=== PATIENT | female | born 1965 | race Caucasian/White ===

== ENCOUNTER 2020-05-23 12:33 | Observation (INO) | payer BC ==
[2020-05-20 15:09] LABS: BASOPHILS # (AUTO) 0.1 (0.0-0.1); BASOPHILS % 0.4 % (0.0-1.0); HEMOGLOBIN 13.7 g/dL (12.0-16.0); LYMPHOCYTES # (AUTO) 1.8 (1.0-3.2); LYMPHOCYTES % 15.3 % (18.0-39.1); MEAN CORPUSCULAR HEMOGLOBIN 29.7 pg (28-32); MEAN CORPUSCULAR HGB CONC 33.4 g/dL (31-35); MEAN CORPUSCULAR VOLUME 88.9 fL (81-99); MONOCYTES # (AUTO) 0.5 (0.2-0.8); MONOCYTES % 3.9 % (4.4-11.3); NEUTROPHILS # (AUTO) 9.1 (2.1-6.9); NEUTROPHILS % 77.5 % (38.7-80.0); PLATELET COUNT 316 x10e3/uL (140-360); RED BLOOD COUNT 4.61 x10e6/uL (3.6-5.1); RED CELL DISTRIBUTION WIDTH 13.4 % (11.7-14.4)
[2020-05-20 15:20] LABS: INR 0.83; PARTIAL THROMBOPLASTIN TIME 17.3 seconds (23.8-35.5); PROTHROMBIN TIME 11.9 seconds (11.9-14.5)
[2020-05-20 15:25] LABS: ANION GAP 18.9 mmol/L (8-16); BLOOD UREA NITROGEN 14 mg/dL (7-26); BUN/CREATININE RATIO 21 (6-25); CALCIUM 9.3 mg/dL (8.4-10.2); CARBON DIOXIDE 23 mmol/L (22-29); CHLORIDE 100 mmol/L (98-107); CREATININE, SERUM 0.67 mg/dL (0.57-1.11); EST GLOMERULAR FILTRATION RATE > 60 ML/MIN (60-); GLUCOSE 206 mg/dL (74-118); POTASSIUM 3.9 mmol/L (3.5-5.1); SODIUM 138 mmol/L (136-145)
[~2020-05-23 12:33] MED LIST: AMBIEN10 MG PO; ATORVASTATIN CA20 MG PO; CYCLOBENZAPRINE5 MG PO; EFFEXOR XR 3737.5 MG PO; FENTANYL CITRATE/PF 100MCG/2 ML INJ ONE; FUROSEMIDE40 MG PO; HYDROCHLOROTHIA25 MG PO; HYDROCODONE PO; INDERAL LA120 MG PO; LIDOCAINE 1% W/EPINEPHRINE 20 ML VIAL ONE; METFORMIN HCL500 MG PO; MIDAZOLAM HCL 2 MG/2 ML VIAL ONE; THROMBIN FOR SOLN 5,000 UNIT VIAL ONE; TRULICITY0.75 MG/0. SC; VANCOMYCIN HCL 1 GM VIAL ONE; VITAMIN E400 UNI2 PO; ZEGERID 20 MG1 EACH PO
[2020-05-23] MEDS ORDERED: ONDANSETRON HCL INJ 2MG/ML 2ML 2 MG/ML VIAL ONE (13:15)
[2020-05-23] MEDS ORDERED: DEXAMETHASONE SOD PHOS INJ 4 MG/ML VIAL ONE (13:15)
[2020-05-23] MEDS ORDERED: LIDOCAINE HCL 2% LOCAL INJ 5 ML SDV VIAL INJ ONE (13:15)
[2020-05-23] MEDS ORDERED: PROPOFOL IV EMULSION 10 MG/ML 20 ML VIAL ONE (13:15)
[2020-05-23] MEDS ORDERED: ROCURONIUM BROMIDE 10 MG/ML 5ML VIAL IV ONE (13:15)
[2020-05-23] MEDS ORDERED: LIDOCAINE HCL 2% JELLY 5 ML TUBE ONE (13:15)
[2020-05-23] MEDS ORDERED: SEVOFLURANE INHAL SOLN 250 ML PEN BTL ONE (13:15)
[2020-05-23] MEDS ORDERED: GLYCOPYRROLATE INJ 0.2 MG/ML VIAL ONE (13:15)
[2020-05-23] MEDS ORDERED: NEOSTIGMINE 1 MG/ML 10ML VIAL ONE (13:15)
[2020-05-23] MEDS ORDERED: CEFAZOLIN SOD 1 GM/NS 50ML 100 ML IV ONE (13:32)
[2020-05-23] MEDS ORDERED: HYDROCODON-ACE1 EA12 PO (14:36)
[2020-05-23] MEDS ORDERED: HYDROMORPHONE 2MG/ML 2 MG/ML ML IV PRN ×2 (14:45)
[2020-05-23] MEDS ORDERED: DEXTROSE 50% SYRINGE 50 ML IV PRN ×2 (14:45→23:00)
[2020-05-23] MEDS ORDERED: CEPACOL SORE THROAT LOZENGES PO PRN (14:45)
[2020-05-23] MEDS ORDERED: MORPHINE SULFATE 5 MG/ML VIAL IM PRN (14:45)
[2020-05-23] MEDS ORDERED: ONDANSETRON HCL INJ 2MG/ML 2ML 2 MG/ML VIAL IV PRN (14:45)
[2020-05-23] MEDS ORDERED: MAGNESIUM/ALUMINUM/SIMETHICONE 30 ML UDC PO PRN (14:45)
[2020-05-23] MEDS ORDERED: PROMETHAZINE HCL (IM) 25 MG/ML VIAL IM PRN (14:45)
[2020-05-23] MEDS ORDERED: ACETAMINOPHEN 325 MG TAB PO PRN (14:45)
[2020-05-23] MEDS ORDERED: FENTANYL CITRATE/PF 100MCG/2 ML INJ ONE (16:05)
[2020-05-23] MEDS ORDERED: FAMOTIDINE 20 MG/2 ML VIAL IV ONE (16:07)
[2020-05-23 17:00] VITALS: BP 166/91
[2020-05-23] MEDS: METFORMIN HCL 500 MG TAB PO SCH (18:48)
[2020-05-23] MEDS: LACTATED RINGER'S 1,000 ML IV SCH ×2 (18:48→23:05)
[2020-05-23 20:00] VITALS: BP 160/78
[2020-05-23] MEDS: OXYCODONE/ACETAMINOPHEN 5-325 1 EACH TABLET PO PRN (20:25)
[2020-05-23] MEDS: CARISOPRODOL 350 MG TAB PO PRN (20:25)
[2020-05-23] MEDS ORDERED: ZOLPIDEM TARTRATE 5 MG TAB PO PRN (21:00)
[2020-05-23] MEDS ORDERED: PROPRANOLOL HCL 60 MG ER CAP PO SCH (21:00)
[2020-05-23] MEDS ORDERED: PROPRANOLOL HCL 60 MG PO SCH (21:00)
[2020-05-23 21:30] VITALS: BP 160/78
[2020-05-23] MEDS: CEFAZOLIN SOD 1 GM/NS 50ML 50 ML IV SCH (22:42)
[2020-05-23] MEDS: INSULIN REGULAR, HUMAN 100 UNIT/1 ML 3ML VIAL SQ SCH (23:38)
[2020-05-24] VITALS: BP 134/66
[2020-05-24] MEDS: OXYCODONE/ACETAMINOPHEN 5-325 1 EACH TABLET PO PRN ×2 (00:30→05:58)
[2020-05-24] MEDS: CARISOPRODOL 350 MG TAB PO PRN ×2 (00:30→05:58)
[2020-05-24 04:00] VITALS: BP 127/76
[2020-05-24] MEDS: CEFAZOLIN SOD 1 GM/NS 50ML 50 ML IV SCH (05:55)
[2020-05-24 08:01] VITALS: BP 127/76
[2020-05-24 08:18] VITALS: BP 134/65
[2020-05-24] MEDS: METFORMIN HCL 500 MG TAB PO SCH (08:49)
[2020-05-24] MEDS: INSULIN REGULAR, HUMAN 100 UNIT/1 ML 3ML VIAL SQ SCH (08:50)
== END 2020-05-24 10:47 | disposition home or self-care (01) ==
LOC: OR 12:33 → PACU V 16:18 → MED/SURG3 16:29
PROVIDERS: ADMIT Neurological Surgery; ATTEND Neurological Surgery
DX: M51.16 Intervertebral disc disorders with radiculopathy, lumbar region (principal); I10 Essential (primary) hypertension; E78.5 Hyperlipidemia, unspecified; E03.9 Hypothyroidism, unspecified; K21.9 Gastro-esophageal reflux disease without esophagitis
CPT/HCPCS: 36415 ×3; 63047; 71046; 72020; 80048; 82948 ×2; 85025; 85610; 85730; 86850; 86900; 88304; 93005; 96372; G0378 ×2; J0690 ×2; J1100; J1170; J2001 ×2; J2250; J2405; J2704; J2710; J3010; J3370; J7121; U0002

== ENCOUNTER 2020-07-17 07:48 | Outpatient (RCR) | payer BC ==
[~2020-07-17 07:48] MED LIST changes: -FENTANYL CITRATE/PF 100MCG/2 ML INJ ONE; +HYDROCODON-ACE1 EA12 PO; -LIDOCAINE 1% W/EPINEPHRINE 20 ML VIAL ONE; +LIDOCAINE/PRILOCAINE 2.5-2.5% KIT ONE; -MIDAZOLAM HCL 2 MG/2 ML VIAL ONE; -THROMBIN FOR SOLN 5,000 UNIT VIAL ONE; -VANCOMYCIN HCL 1 GM VIAL ONE
== END 2020-07-18 ==
LOC: PT 07:48
PROVIDERS: ATTEND Neurological Surgery
DX: M51.16 Intervertebral disc disorders with radiculopathy, lumbar region (principal); M62.81 Muscle weakness (generalized); M53.86 Other specified dorsopathies, lumbar region; R26.2 Difficulty in walking, not elsewhere classified

== ENCOUNTER 2020-08-14 07:55 | Outpatient (RCR) | payer BC ==
[~2020-08-14 07:55] MED LIST changes: -LIDOCAINE/PRILOCAINE 2.5-2.5% KIT ONE
== END 2020-08-18 ==
LOC: PT 07:55
PROVIDERS: ATTEND Neurological Surgery
DX: M51.16 Intervertebral disc disorders with radiculopathy, lumbar region (principal)

== ENCOUNTER 2020-08-21 07:54 | Outpatient (RCR) | payer BC | END 2020-09-17 | LOC: PT 07:54 | PROVIDERS: ATTEND Neurological Surgery | DX: M51.16 Intervertebral disc disorders with radiculopathy, lumbar region (principal); M62.81 Muscle weakness (generalized); R26.2 Difficulty in walking, not elsewhere classified; M53.86 Other specified dorsopathies, lumbar region | CPT/HCPCS: 97139 ==

== ENCOUNTER → 2021-10-26 | Outpatient (CLI) | payer BC | LOC: US 07:46 | PROVIDERS: ATTEND Internal Medicine | DX: E05.90 Thyrotoxicosis, unspecified without thyrotoxic crisis or storm (principal) | CPT/HCPCS: 76536; 78014; A9516 ==

== ENCOUNTER 2022-05-19 17:09 | Inpatient (IN) | payer BC ==
[~2022-05-19] VITALS: Ht 172.7 cm; Wt 77.1 kg
[2022-05-19 17:28] LABS: BASOPHILS # (AUTO) 0.1 (0.0-0.1); BASOPHILS % 0.5 % (0.0-1.0); EOSINOPHILS # (AUTO) 0.3 (0.0-0.4); EOSINOPHILS % 1.8 % (0.0-6.0); HEMATOCRIT 38.6 % (34.2-44.1); HEMOGLOBIN 13.5 g/dL (12.0-16.0); LYMPHOCYTES # (AUTO) 4.1 (1.0-3.2); LYMPHOCYTES % 25.7 % (18.0-39.1); MEAN CORPUSCULAR HEMOGLOBIN 29.5 pg (28-32); MEAN CORPUSCULAR VOLUME 84.3 fL (81-99); MONOCYTES % 6.2 % (4.4-11.3); NEUTROPHILS # (AUTO) 10.1 (2.1-6.9); NEUTROPHILS % 64.5 % (38.7-80.0); PLATELET COUNT 405 x10e3/uL (140-360); RED BLOOD COUNT 4.58 x10e6/uL (3.6-5.1); RED CELL DISTRIBUTION WIDTH 12.6 % (11.7-14.4)
[2022-05-19 17:47] LABS: ALANINE AMINOTRANSFERASE 13 IU/L (0-55); ALBUMIN 3.8 g/dL (3.5-5.0); ALBUMIN/GLOBULIN RATIO 1.4 (0.8-2.0); ALKALINE PHOSPHATASE 92 IU/L (40-150); ANION GAP 15.4 mmol/L (8-16); BLOOD UREA NITROGEN 24 mg/dL (7-26); BUN/CREATININE RATIO 13 (6-25); CALCIUM 9.7 mg/dL (8.4-10.2); CARBON DIOXIDE 28 mmol/L (22-29); CHLORIDE 91 mmol/L (98-107); CREATINE KINASE 23 IU/L (29-168); CREATININE, SERUM 1.78 mg/dL (0.57-1.11); GLUCOSE 106 mg/dL (74-118); POTASSIUM 3.4 mmol/L (3.5-5.1); SODIUM 131 mmol/L (136-145)
[2022-05-19 18:03] LABS: FREE T4 (FREE THYROXINE) 0.89 ng/dL (0.8-1.8); THYROID STIMULATING HORMONE 6.954 uIU/mL (0.350-4.940)
[2022-05-19 18:45] LABS: CLARITY,URINE CLEAR (CLEAR); COLOR,URINE YELLOW (YELLOW)
[2022-05-19 18:46] LABS: KETONES,URINE 1+ (NEGATIVE); LEUKOCYTE ESTERASE ,URINE TRACE (NEGATIVE); NITRITE,URINE NEGATIVE (NEGATIVE); PROTEIN,URINE DIPSTICK NEGATIVE (NEGATIVE); URINE UROBILINOGEN 0.2 mg/dL (0.2 - 1)
[2022-05-19 18:53] LABS: AMPHETAMINES SCREEN,URINE NEGATIVE (NEGATIVE); BENZODIAZEPINES SCREEN,URINE POSITIVE (NEGATIVE); PHENCYCLIDINE SCREEN,URINE NEGATIVE (NEGATIVE)
[2022-05-19 18:56] LABS: BACTERIA,URINE FEW /HPF; CALCIUM OXALATE CRYSTALS,UR MANY (FEW)
[2022-05-19] MEDS ORDERED: SODIUM CHLORIDE 0.9% 1000ML 1,000 ML IV STA (19:14)
[2022-05-19] MEDS: SODIUM CHLORIDE 0.9% 1000ML 1,000 ML IV SCH (21:30)
[2022-05-20] MEDS: SODIUM CHLORIDE 0.9% 1000ML 1,000 ML IV SCH (05:05)
[2022-05-20 06:42] LABS: BASOPHILS # (AUTO) 0.1 (0.0-0.1); BASOPHILS % 0.6 % (0.0-1.0); EOSINOPHILS # (AUTO) 0.3 (0.0-0.4); EOSINOPHILS % 2.7 % (0.0-6.0); HEMOGLOBIN 13.6 g/dL (12.0-16.0); LYMPHOCYTES # (AUTO) 3.4 (1.0-3.2); LYMPHOCYTES % 33.5 % (18.0-39.1); MEAN CORPUSCULAR HEMOGLOBIN 29.1 pg (28-32); MEAN CORPUSCULAR VOLUME 85.7 fL (81-99); MONOCYTES # (AUTO) 0.6 (0.2-0.8); MONOCYTES % 5.6 % (4.4-11.3); NEUTROPHILS # (AUTO) 5.7 (2.1-6.9); NEUTROPHILS % 56.1 % (38.7-80.0); PLATELET COUNT 329 x10e3/uL (140-360); RED BLOOD COUNT 4.67 x10e6/uL (3.6-5.1); RED CELL DISTRIBUTION WIDTH 12.8 % (11.7-14.4)
[2022-05-20 07:12] LABS: ALBUMIN 3.4 g/dL (3.5-5.0); ALBUMIN/GLOBULIN RATIO 1.3 (0.8-2.0); ANION GAP 11.9 mmol/L (8-16); CALCIUM 8.5 mg/dL (8.4-10.2); CREATININE, SERUM 0.98 mg/dL (0.57-1.11)
[2022-05-20 07:26] LABS: POTASSIUM 2.9 mmol/L (3.5-5.1)
[2022-05-20] MEDS ORDERED: POTASSIUM CHLORIDE 20 MEQ TAB CR PO STA (07:38)
[2022-05-20] MEDS ORDERED: POTASSIUM CHLORIDE 40 MEQ in SODIUM CHLORIDE 0.45% 1,000 ML IV SCH (07:45)
[2022-05-20 07:48] LABS: CREATINE KINASE 15 IU/L (29-168)
[2022-05-20 08:09] LABS: MAGNESIUM 1.7 MG/DL (1.3-2.1); PHOSPHORUS 1.9 MG/DL (2.3-4.7)
[2022-05-20] MEDS: POTASSIUM CHL 40 MEQ in SODIUM CHLORIDE 0.45% 1,000 ML IV SCH ×2 (08:32→18:27)
[2022-05-20] MEDS ORDERED: TOPIRAMATE25 MG PO (08:40)
[2022-05-20] MEDS ORDERED: ZYRTEC10 M3 PO (08:40)
[2022-05-20] MEDS ORDERED: LASIX40 MG PO (08:40)
[2022-05-20] MEDS ORDERED: ZEGERID OTC 201 EACH PO (08:40)
[2022-05-20] MEDS ORDERED: HYDROCHLOROTHIA25 MG PO (08:40)
[2022-05-20] MEDS ORDERED: FLONASE ALLERG9.9 ML INH (08:40)
[2022-05-20] MEDS ORDERED: GLIPIZIDE5 MG PO (08:40)
[2022-05-20] MEDS ORDERED: KLOR-CON M2020 MEQ PO (08:40)
[2022-05-20] MEDS ORDERED: PROPRANOLOL HCL40 MG PO (08:40)
[2022-05-20] MEDS ORDERED: METHIMAZOLE10 MG PO (08:40)
[2022-05-20] MEDS ORDERED: MAGNESIUM SULFATE 2GM/50ML IV ONE (09:30)
[2022-05-20] MEDS ORDERED: POTASSIUM PHOSPHATE 20 MM in SODIUM CHLORIDE 0.9% 250ML 250 ML IV ONE (09:30)
[2022-05-20] MEDS ORDERED: MAGNESIUM SULFATE 2GM/50ML 50 ML IV ONE (09:30)
[2022-05-20] MEDS ORDERED: DEXTROSE 50% SYRINGE 50 ML IV PRN (10:15)
[2022-05-20] MEDS ORDERED: PEG (High)/E-LYTE SOLN 4,000 ML BTL PO ONE ×2 (11:30→18:00)
[2022-05-20] MEDS: INSULIN LISPRO 100 UNIT/1 ML 3ML VIAL SQ SCH ×3 (11:30→21:00)
[2022-05-20] MEDS ORDERED: PROPRANOLOL HCL 40 MG TAB PO SCH (17:00)
[2022-05-20 17:39] VITALS: BP 140/69
[2022-05-20 17:40] VITALS: BP 140/69
[2022-05-20] MEDS ORDERED: TRULICITY0.75 MG/0. SQ (18:58)
[2022-05-20 20:00] VITALS: BP 104/87
[2022-05-20 20:35] VITALS: BP 140/69
[2022-05-20] MEDS: PROPRANOLOL HCL 40 MG TAB PO SCH (21:00)
[2022-05-20] MEDS: TOPIRAMATE 25 MG TAB PO SCH (21:27)
[2022-05-20] MEDS: ONDANSETRON HCL INJ 2MG/ML 2ML 2 MG/ML VIAL IV PRN (21:42)
[2022-05-20] MEDS: Morphine 4mg INJECTION 4 MG/ML INJ IV PRN (21:43)
[2022-05-20] MEDS: METOCLOPRAMIDE HCL 10 MG/2ML VIAL IV SCH (23:27)
[2022-05-21] VITALS (8 sets, daily range): BP systolic 114–134; BP diastolic 73–83
[2022-05-21] MEDS ORDERED: DOCUSATE SODIUM 100 MG CAP PO ONE ×2 (00:15→00:45)
[2022-05-21] MEDS: POTASSIUM CHL 40 MEQ in SODIUM CHLORIDE 0.45% 1,000 ML IV SCH ×2 (04:28→17:01)
[2022-05-21 05:52] LABS: BASOPHILS # (AUTO) 0.1 (0.0-0.1); BASOPHILS % 0.6 % (0.0-1.0); EOSINOPHILS # (AUTO) 0.2 (0.0-0.4); EOSINOPHILS % 2.5 % (0.0-6.0); HEMOGLOBIN 12.6 g/dL (12.0-16.0); LYMPHOCYTES # (AUTO) 2.6 (1.0-3.2); LYMPHOCYTES % 33.7 % (18.0-39.1); MEAN CORPUSCULAR HGB CONC 33.2 g/dL (31-35); MEAN CORPUSCULAR VOLUME 87.4 fL (81-99); MONOCYTES # (AUTO) 0.5 (0.2-0.8); NEUTROPHILS # (AUTO) 4.3 (2.1-6.9); PLATELET COUNT 302 x10e3/uL (140-360); RED BLOOD COUNT 4.35 x10e6/uL (3.6-5.1); RED CELL DISTRIBUTION WIDTH 12.7 % (11.7-14.4)
[2022-05-21] MEDS ORDERED: PEG (High)/E-LYTE SOLN 4,000 ML BTL PO ONE (06:00)
[2022-05-21 06:10] LABS: CREATINE KINASE 19 IU/L (29-168)
[2022-05-21] MEDS: METOCLOPRAMIDE HCL 10 MG/2ML VIAL IV SCH ×3 (06:26→18:00)
[2022-05-21 06:27] LABS: ANION GAP 14.7 mmol/L (8-16); CALCIUM 8.7 mg/dL (8.4-10.2); CREATININE, SERUM 0.67 mg/dL (0.57-1.11); POTASSIUM 3.7 mmol/L (3.5-5.1)
[2022-05-21 06:48] LABS: MAGNESIUM 1.9 MG/DL (1.3-2.1); PHOSPHORUS 3.9 MG/DL (2.3-4.7)
[2022-05-21 07:09] LABS: THYROID STIMULATING HORMONE 7.524 uIU/mL (0.350-4.940)
[2022-05-21] MEDS: INSULIN LISPRO 100 UNIT/1 ML 3ML VIAL SQ SCH ×4 (07:30→22:24)
[2022-05-21] MEDS: METHIMAZOLE 5 MG TAB PO SCH (09:00)
[2022-05-21] MEDS: PROPRANOLOL HCL 40 MG TAB PO SCH ×2 (09:00→22:04)
[2022-05-21] MEDS: LORATADINE 10 MG TAB PO SCH (09:00)
[2022-05-21] MEDS ORDERED: METHIMAZOLE PO SCH (09:00)
[2022-05-21] MEDS ORDERED: KETOROLAC TROMETHAMINE 30 MG/ML VIAL ONE (12:26)
[2022-05-21] MEDS ORDERED: ONDANSETRON HCL INJ 2MG/ML 2ML 2 MG/ML VIAL ONE (12:26)
[2022-05-21] MEDS ORDERED: METOCLOPRAMIDE HCL 10 MG/2ML VIAL ONE (12:26)
[2022-05-21] MEDS ORDERED: PROPOFOL IV EMULSION 10 MG/ML 20 ML VIAL ONE (12:26)
[2022-05-21] MEDS ORDERED: POVIDONE IODINE 0.05% 0.05 % ML PO ONE (12:26)
[2022-05-21] MEDS: FLUCONAZOLE 200 MG/100 ML 100 ML IV SCH (18:25)
[2022-05-21] MEDS: TOPIRAMATE 25 MG TAB PO SCH (22:05)
[2022-05-22] VITALS (10 sets, daily range): BP systolic 116–139; BP diastolic 66–94
[2022-05-22 05:01] LABS: BASOPHILS % 0.1 % (0.0-1.0); HEMOGLOBIN 12.9 g/dL (12.0-16.0); LYMPHOCYTES # (AUTO) 0.7 (1.0-3.2); LYMPHOCYTES % 10.2 % (18.0-39.1); MEAN CORPUSCULAR HEMOGLOBIN 28.6 pg (28-32); MEAN CORPUSCULAR HGB CONC 33.1 g/dL (31-35); MEAN CORPUSCULAR VOLUME 86.5 fL (81-99); MONOCYTES # (AUTO) 0.1 (0.2-0.8); NEUTROPHILS # (AUTO) 5.9 (2.1-6.9); NEUTROPHILS % 87.7 % (38.7-80.0); PLATELET COUNT 266 x10e3/uL (140-360); RED BLOOD COUNT 4.51 x10e6/uL (3.6-5.1); RED CELL DISTRIBUTION WIDTH 12.9 % (11.7-14.4)
[2022-05-22] MEDS: METOCLOPRAMIDE HCL 10 MG/2ML VIAL IV SCH ×5 (05:12→23:50)
[2022-05-22 05:26] LABS: ANION GAP 12.9 mmol/L (8-16); CALCIUM 8.7 mg/dL (8.4-10.2); CREATININE, SERUM 0.72 mg/dL (0.57-1.11); POTASSIUM 3.9 mmol/L (3.5-5.1)
[2022-05-22 05:28] LABS: MAGNESIUM 1.9 MG/DL (1.3-2.1); PHOSPHORUS 3.3 MG/DL (2.3-4.7)
[2022-05-22] MEDS: POTASSIUM CHL 40 MEQ in SODIUM CHLORIDE 0.45% 1,000 ML IV SCH ×3 (06:44→21:17)
[2022-05-22] MEDS: INSULIN LISPRO 100 UNIT/1 ML 3ML VIAL SQ SCH ×5 (07:30→21:00)
[2022-05-22] MEDS: LORATADINE 10 MG TAB PO SCH (08:15)
[2022-05-22] MEDS: METHIMAZOLE 5 MG TAB PO SCH (08:17)
[2022-05-22] MEDS: PROPRANOLOL HCL 40 MG TAB PO SCH ×2 (08:17→21:19)
[2022-05-22] MEDS: Morphine 4mg INJECTION 4 MG/ML INJ IV PRN ×2 (12:16→22:02)
[2022-05-22] MEDS: ONDANSETRON HCL INJ 2MG/ML 2ML 2 MG/ML VIAL IV PRN ×2 (12:16→22:01)
[2022-05-22] MEDS: FLUCONAZOLE 200 MG/100 ML 100 ML IV SCH (18:38)
[2022-05-22] MEDS: TOPIRAMATE 25 MG TAB PO SCH (21:17)
[2022-05-23] VITALS (8 sets, daily range): BP systolic 99–129; BP diastolic 52–84
[2022-05-23] MEDS ORDERED: CYANOCOBALAMIN INJ 1,000 MCG/ML VIAL IM ONE (00:30)
[2022-05-23 05:30] LABS: BASOPHILS % 0.1 % (0.0-1.0); EOSINOPHILS % 0.1 % (0.0-6.0); HEMOGLOBIN 12.3 g/dL (12.0-16.0); LYMPHOCYTES # (AUTO) 1.8 (1.0-3.2); LYMPHOCYTES % 14.6 % (18.0-39.1); MEAN CORPUSCULAR HEMOGLOBIN 29.4 pg (28-32); MEAN CORPUSCULAR HGB CONC 33.2 g/dL (31-35); MEAN CORPUSCULAR VOLUME 88.3 fL (81-99); MONOCYTES # (AUTO) 0.5 (0.2-0.8); MONOCYTES % 3.9 % (4.4-11.3); NEUTROPHILS % 80.5 % (38.7-80.0); PLATELET COUNT 303 x10e3/uL (140-360); RED BLOOD COUNT 4.19 x10e6/uL (3.6-5.1); RED CELL DISTRIBUTION WIDTH 13.5 % (11.7-14.4)
[2022-05-23 05:44] LABS: ANION GAP 11.5 mmol/L (8-16); CREATININE, SERUM 0.81 mg/dL (0.57-1.11); POTASSIUM 4.5 mmol/L (3.5-5.1)
[2022-05-23] MEDS: METOCLOPRAMIDE HCL 10 MG/2ML VIAL IV SCH ×3 (05:44→18:38)
[2022-05-23] MEDS: INSULIN LISPRO 100 UNIT/1 ML 3ML VIAL SQ SCH ×4 (07:30→20:05)
[2022-05-23] MEDS: CYANOCOBALAMIN INJ 1,000 MCG/ML VIAL IM SCH (08:45)
[2022-05-23] MEDS: POTASSIUM CHL 40 MEQ in SODIUM CHLORIDE 0.45% 1,000 ML IV SCH ×2 (08:45→17:51)
[2022-05-23] MEDS: METHIMAZOLE 5 MG TAB PO SCH (08:45)
[2022-05-23] MEDS: PROPRANOLOL HCL 40 MG TAB PO SCH ×2 (08:46→21:46)
[2022-05-23] MEDS: LORATADINE 10 MG TAB PO SCH (08:46)
[2022-05-23] MEDS: FLUCONAZOLE 200 MG/100 ML 100 ML IV SCH (18:38)
[2022-05-23] MEDS: TOPIRAMATE 25 MG TAB PO SCH (21:45)
[2022-05-23] MEDS ORDERED: CHLORDIAZEPOXIDE/CLIDINIUM 1 CAP PO STA (22:04)
[2022-05-24] VITALS (7 sets, daily range): BP systolic 116–142; BP diastolic 74–84
[2022-05-24] MEDS: METOCLOPRAMIDE HCL 10 MG/2ML VIAL IV SCH ×4 (00:12→17:57)
[2022-05-24] MEDS: POTASSIUM CHL 40 MEQ in SODIUM CHLORIDE 0.45% 1,000 ML IV SCH ×3 (01:44→14:15)
[2022-05-24 05:12] LABS: BASOPHILS % 0.5 % (0.0-1.0); EOSINOPHILS # (AUTO) 0.1 (0.0-0.4); EOSINOPHILS % 0.9 % (0.0-6.0); HEMATOCRIT 36.9 % (34.2-44.1); HEMOGLOBIN 12.2 g/dL (12.0-16.0); LYMPHOCYTES % 38.4 % (18.0-39.1); MEAN CORPUSCULAR HEMOGLOBIN 29.4 pg (28-32); MEAN CORPUSCULAR HGB CONC 33.1 g/dL (31-35); MEAN CORPUSCULAR VOLUME 88.9 fL (81-99); MONOCYTES # (AUTO) 0.5 (0.2-0.8); MONOCYTES % 5.8 % (4.4-11.3); NEUTROPHILS # (AUTO) 4.3 (2.1-6.9); NEUTROPHILS % 53.9 % (38.7-80.0); PLATELET COUNT 233 x10e3/uL (140-360); RED BLOOD COUNT 4.15 x10e6/uL (3.6-5.1); RED CELL DISTRIBUTION WIDTH 13.9 % (11.7-14.4)
[2022-05-24 05:28] LABS: ANION GAP 12.8 mmol/L (8-16); CALCIUM 8.8 mg/dL (8.4-10.2); CREATININE, SERUM 0.69 mg/dL (0.57-1.11); POTASSIUM 3.8 mmol/L (3.5-5.1)
[2022-05-24 05:51] LABS: MAGNESIUM 1.9 MG/DL (1.3-2.1); PHOSPHORUS 3.8 MG/DL (2.3-4.7)
[2022-05-24] MEDS: INSULIN LISPRO 100 UNIT/1 ML 3ML VIAL SQ SCH ×4 (07:30→21:00)
[2022-05-24] MEDS ORDERED: MAGNESIUM HYDROXIDE 30 ML UDC PO ONE (08:00)
[2022-05-24] MEDS: CYANOCOBALAMIN INJ 1,000 MCG/ML VIAL IM SCH ×2 (09:00→21:46)
[2022-05-24] MEDS: CHLORDIAZEPOXIDE/CLIDINIUM 1 CAP PO SCH ×4 (09:29→21:48)
[2022-05-24] MEDS: METHIMAZOLE 5 MG TAB PO SCH (09:30)
[2022-05-24] MEDS: LORATADINE 10 MG TAB PO SCH (09:30)
[2022-05-24] MEDS ORDERED: SODIUM CHLORIDE 0.9% 250ML 250 ML ONE (09:52)
[2022-05-24] MEDS ORDERED: GADOBENATE DIMEGLUMINE 1 ML IV ONE (10:03)
[2022-05-24] MEDS: PROPRANOLOL HCL 40 MG TAB PO SCH ×2 (14:11→21:47)
[2022-05-24] MEDS ORDERED: ACETAMINOPHEN 325 MG TAB PO PRN (14:45)
[2022-05-24] MEDS: Morphine 4mg INJECTION 4 MG/ML INJ IV PRN ×2 (17:46→22:01)
[2022-05-24] MEDS: ONDANSETRON HCL INJ 2MG/ML 2ML 2 MG/ML VIAL IV PRN ×2 (17:46→22:01)
[2022-05-24] MEDS: FLUCONAZOLE 200 MG/100 ML 100 ML IV SCH (18:30)
[2022-05-24] MEDS: TOPIRAMATE 25 MG TAB PO SCH (21:48)
[2022-05-25] VITALS: BP 121/71
[2022-05-25] MEDS: METOCLOPRAMIDE HCL 10 MG/2ML VIAL IV SCH ×4 (00:16→17:15)
[2022-05-25] MEDS: POTASSIUM CHL 40 MEQ in SODIUM CHLORIDE 0.45% 1,000 ML IV SCH ×2 (00:16→09:19)
[2022-05-25 06:00] VITALS: BP 132/80
[2022-05-25] MEDS: INSULIN LISPRO 100 UNIT/1 ML 3ML VIAL SQ SCH ×4 (07:30→21:00)
[2022-05-25 08:23] VITALS: BP 138/85
[2022-05-25] MEDS: CHLORDIAZEPOXIDE/CLIDINIUM 1 CAP PO SCH ×4 (09:14→21:11)
[2022-05-25] MEDS: METHIMAZOLE 5 MG TAB PO SCH (09:15)
[2022-05-25] MEDS: LORATADINE 10 MG TAB PO SCH (09:15)
[2022-05-25] MEDS: PROPRANOLOL HCL 40 MG TAB PO SCH ×2 (09:15→21:11)
[2022-05-25 12:05] VITALS: BP 102/56
[2022-05-25 16:26] VITALS: BP 119/72
[2022-05-25] MEDS: FLUCONAZOLE 200 MG/100 ML 100 ML IV SCH (17:53)
[2022-05-25 21:03] VITALS: BP 129/55
[2022-05-25] MEDS: TOPIRAMATE 25 MG TAB PO SCH (21:11)
[2022-05-25] MEDS: CYANOCOBALAMIN INJ 1,000 MCG/ML VIAL IM SCH (21:15)
[2022-05-26] VITALS (11 sets, daily range): BP systolic 117–165; BP diastolic 55–97
[2022-05-26] MEDS: CHLORDIAZEPOXIDE/CLIDINIUM 1 CAP PO SCH (07:30)
[2022-05-26] MEDS: INSULIN LISPRO 100 UNIT/1 ML 3ML VIAL SQ SCH ×4 (07:30→21:00)
[2022-05-26] MEDS: METOCLOPRAMIDE HCL 10 MG/2ML VIAL IV SCH ×3 (07:30→17:32)
[2022-05-26] MEDS ORDERED: BUPIVACAINE 0.5%/EPI 30 ML SDV INJ ONE (09:00)
[2022-05-26] MEDS: LORATADINE 10 MG TAB PO SCH (09:00)
[2022-05-26] MEDS: PROPRANOLOL HCL 40 MG TAB PO SCH ×2 (09:00→21:21)
[2022-05-26] MEDS: METHIMAZOLE 5 MG TAB PO SCH (09:00)
[2022-05-26] MEDS ORDERED: ACETAMINOPHEN 1000 MG/100 ML IV PRN (10:30)
[2022-05-26] MEDS ORDERED: ONDANSETRON HCL INJ 2MG/ML 2ML 2 MG/ML VIAL IV PRN (10:30)
[2022-05-26] MEDS ORDERED: HYDROMORPHONE 1MG/1ML INJ IV PRN (10:30)
[2022-05-26] MEDS ORDERED: FENTANYL CITRATE/PF 100MCG/2 ML INJ ONE ×2 (11:10→12:08)
[2022-05-26] MEDS ORDERED: METOCLOPRAMIDE HCL 10 MG/2ML VIAL ONE (11:24)
[2022-05-26] MEDS: SODIUM CHLORIDE 0.9% 1000ML 1,000 ML IV SCH ×2 (11:30→21:22)
[2022-05-26] MEDS ORDERED: ONDANSETRON HCL INJ 2MG/ML 2ML 2 MG/ML VIAL ONE (11:53)
[2022-05-26] MEDS ORDERED: PROPOFOL IV EMULSION 10 MG/ML 20 ML VIAL ONE (11:53)
[2022-05-26] MEDS ORDERED: KETOROLAC TROMETHAMINE 30 MG/ML VIAL ONE (11:53)
[2022-05-26] MEDS ORDERED: NEOSTIGMINE 1 MG/ML 10ML VIAL ONE (11:53)
[2022-05-26] MEDS ORDERED: LIDOCAINE HCL 2% LOCAL INJ 5 ML SDV VIAL INJ ONE (11:53)
[2022-05-26] MEDS ORDERED: ROCURONIUM BROMIDE 10 MG/ML 5ML VIAL IV ONE (11:53)
[2022-05-26] MEDS ORDERED: POVIDONE IODINE 0.05% 0.05 % ML PO ONE (11:53)
[2022-05-26] MEDS ORDERED: SEVOFLURANE INHAL SOLN 250 ML PEN BTL ONE (11:53)
[2022-05-26] MEDS ORDERED: DEXAMETHASONE SOD PHOS INJ 4 MG/ML SDV ONE (11:53)
[2022-05-26] MEDS ORDERED: CEFTRIAXONE 1 GM VIAL ONE (11:53)
[2022-05-26] MEDS ORDERED: GLYCOPYRROLATE INJ 0.2 MG/ML VIAL ONE (11:53)
[2022-05-26] MEDS ORDERED: PHENYLEPHRINE HCL 1% 10 MG/ML VIAL ONE (11:53)
[2022-05-26] MEDS ORDERED: MIDAZOLAM HCL 2 MG/2 ML VIAL ONE (12:08)
[2022-05-26] MEDS: FLUCONAZOLE 200 MG/100 ML 100 ML IV SCH (17:31)
[2022-05-26] MEDS: HYDROCODONE/APAP 7.5MG-325MG 1 EA TAB PO PRN ×2 (17:38→23:25)
[2022-05-26] MEDS: CYANOCOBALAMIN INJ 1,000 MCG/ML VIAL IM SCH (21:20)
[2022-05-26] MEDS: TOPIRAMATE 25 MG TAB PO SCH (21:21)
[2022-05-27] VITALS (7 sets, daily range): BP systolic 118–165; BP diastolic 65–93
[2022-05-27] MEDS: HYDROCODONE/APAP 7.5MG-325MG 1 EA TAB PO PRN ×3 (03:17→14:24)
[2022-05-27 05:02] LABS: BASOPHILS % 0.2 % (0.0-1.0); HEMATOCRIT 33.9 % (34.2-44.1); HEMOGLOBIN 11.3 g/dL (12.0-16.0); LYMPHOCYTES # (AUTO) 1.2 (1.0-3.2); LYMPHOCYTES % 8.9 % (18.0-39.1); MEAN CORPUSCULAR HEMOGLOBIN 29.3 pg (28-32); MEAN CORPUSCULAR HGB CONC 33.3 g/dL (31-35); MEAN CORPUSCULAR VOLUME 87.8 fL (81-99); MONOCYTES # (AUTO) 0.7 (0.2-0.8); MONOCYTES % 5.2 % (4.4-11.3); NEUTROPHILS # (AUTO) 11.3 (2.1-6.9); NEUTROPHILS % 85.1 % (38.7-80.0); PLATELET COUNT 214 x10e3/uL (140-360); RED BLOOD COUNT 3.86 x10e6/uL (3.6-5.1); RED CELL DISTRIBUTION WIDTH 13.3 % (11.7-14.4)
[2022-05-27 05:31] LABS: ALBUMIN 3.2 g/dL (3.5-5.0); ALBUMIN/GLOBULIN RATIO 1.5 (0.8-2.0); ANION GAP 12.4 mmol/L (8-16); CALCIUM 8.5 mg/dL (8.4-10.2); CREATININE, SERUM 0.66 mg/dL (0.57-1.11); POTASSIUM 3.4 mmol/L (3.5-5.1)
[2022-05-27] MEDS: INSULIN LISPRO 100 UNIT/1 ML 3ML VIAL SQ SCH ×2 (07:30→11:23)
[2022-05-27] MEDS: LORATADINE 10 MG TAB PO SCH (07:57)
[2022-05-27] MEDS: METHIMAZOLE 5 MG TAB PO SCH (07:58)
[2022-05-27] MEDS: METOCLOPRAMIDE HCL 10 MG/2ML VIAL IV SCH ×2 (08:00→11:30)
[2022-05-27] MEDS: PROPRANOLOL HCL 40 MG TAB PO SCH (10:23)
[2022-05-27] MEDS ORDERED: ONDANSETRON HCL 4 MG ORAL DISINTEGRATING TAB PO PRN (11:00)
[2022-05-28] MEDS ORDERED: PANTOPRAZOLE SOD 40 MG TABEC PO SCH (07:30)
== END 2022-05-27 15:44 | disposition home or self-care (01) | DRG 418 ==
LOC: ER 17:50 → ERHOLD 19:26 → MED/SURG 05-20 17:32 → OBSVTOIN 05-22 07:47 → INTOOBSV 05-22 07:47
PROVIDERS: ADMIT Internal Medicine; ATTEND Internal Medicine
PROC: 0DD98ZX Extraction of Duodenum, Via Natural or Artificial Opening Endoscopic, Diagnostic (ICD-10-PCS; 2022-05-21)
PROC: 0DD78ZX Extraction of Stomach, Pylorus, Via Natural or Artificial Opening Endoscopic, Diagnostic (ICD-10-PCS; 2022-05-21)
PROC: 0DD68ZX Extraction of Stomach, Via Natural or Artificial Opening Endoscopic, Diagnostic (ICD-10-PCS; 2022-05-21)
PROC: 0DD58ZX Extraction of Esophagus, Via Natural or Artificial Opening Endoscopic, Diagnostic (ICD-10-PCS; 2022-05-21)
PROC: 0FT44ZZ Resection of Gallbladder, Percutaneous Endoscopic Approach (ICD-10-PCS; principal; 2022-05-26 09:09)
DX: K80.12 Calculus of gallbladder with acute and chronic cholecystitis without obstruction (principal); E87.1 Hypo-osmolality and hyponatremia; N17.9 Acute kidney failure, unspecified; I10 Essential (primary) hypertension; K21.9 Gastro-esophageal reflux disease without esophagitis; E11.9 Type 2 diabetes mellitus without complications; Z20.822 Contact with and (suspected) exposure to COVID-19; E03.9 Hypothyroidism, unspecified; M19.91 Primary osteoarthritis, unspecified site; E87.8 Other disorders of electrolyte and fluid balance, not elsewhere classified; E86.0 Dehydration; K59.00 Constipation, unspecified; K20.90 Esophagitis, unspecified without bleeding; K31.7 Polyp of stomach and duodenum; K29.70 Gastritis, unspecified, without bleeding; K22.89 Other specified disease of esophagus
CPT/HCPCS: 36415; 43239; 71045; 74176; 74185; 78227; 80048; 80053; 80307; 81001; 82550; 82553; 82607; 82746; 82948; 83690; 83735; 83880; 84100; 84439; 84443; 84484; 85025; 87106; 87205; 88304; 88305; 88312; 88342; 93005; 94799; 99252; 99284; A9537; C1766; G0378; J0696; J1100; J1170; J1450; J1885; J2001; J2250; J2270; J2370; J2405; J2710; J2765; J3420; J3475; J3480; J7030; J7050